=== PATIENT | female | born 1985 | race Two or more races ===

== ENCOUNTER 2018-09-15 12:29 | Emergency (ER) | payer OTHER ==
[~2018-09-15] VITALS: Ht 154.9 cm; Wt 56.7 kg
[2018-09-15] MEDS ORDERED: NORFLEX100MG PO (15:35)
[2018-09-15] MEDS ORDERED: KETOROLAC TROME10 MG PO (15:35)
== END 2018-09-15 15:44 | disposition home or self-care (01) ==
LOC: ER 12:29
DX: S13.4XXA Sprain of ligaments of cervical spine, initial encounter (principal); M54.2 Cervicalgia; V49.9XXA Car occupant (driver) (passenger) injured in unspecified traffic accident, initial encounter; Y93.89 Activity, other specified; Y92.488 Other paved roadways as the place of occurrence of the external cause; Y99.8 Other external cause status